=== PATIENT | male | born 1965 | race Caucasian/White ===

== ENCOUNTER 2024-05-31 14:49 | Outpatient (CLI) | payer OTHER, SELFPAY ==
--- NOTE | ~2024-05-31 | XR_ITS ---
XR lumbar spine 2-3V DATE: 05/31/2024 15:00 INDICATION: Low back pain TECHNIQUE: AP, lateral, coned lateral lumbosacral views COMPARISON: None FINDINGS: There is grade 1 anterolisthesis at L4-5. Primary lumbar spinal stenosis is not excluded. Mild degenerative disc disease at L2-3 and L4-5, mild to moderate degenerative disc disease at L3-4. No fracture or bone destruction is evident. The included lower thoracic and lumbar pedicles are intac t. The sacroiliac joints are unremarkable. IMPRESSION: Grade 1 anterolisthesis at L4-5 Mild to moderate multilevel degenerative disc disease Reviewed, dictated and finalized at location A.
== END 2024-05-31 14:50 | disposition home or self-care (01) ==
LOC: MICIMG 14:50
PROVIDERS: PCP Family Medicine; Visit Provider Student in an Organized Health Care Education/Training Program
DX: M51.369 Other intervertebral disc degeneration, lumbar region without mention of lumbar back pain or lower extremity pain (principal)
CPT/HCPCS: 72100

== ENCOUNTER 2024-06-11 01:10 | Emergency (ER) | payer OTHER, SELFPAY ==
[2024-06-11 01:12] VITALS: BP 155/96; PULSE 65; RESP 18; TEMP 36.4; O2SAT 97
--- NOTE | 2024-06-11 02:15 | ED_ITS ---
HPI - Skin/Abscess/Foreign Bdy General Chief complaint: Skin/Abscess/Foreign Body Stated complaint: Hemmrrhoid Time Seen by Provider: 06/11/24 02:12 Source: patient and family () Mode of arrival: ambulatory Limitations: no limitations History of Present Illness HPI narrative: Patient presents with concern for a hemorrhoid. He recently started prednisone for a back issue and noted that he started to have constipation with firm balls of stool. He has a history of hemorrhoids including a bleeding hemorrhoid approximately 10 years ago. Patient noticed what felt like a hemorrhoid his anus yesterday and he has been trying to get it back in place yesterday and today. His last void was earlier today. He feels like he needs to but states he can not. He denies any fever but he does note that he was diaphoretic presume this was due to pain. He rates his pain 9 out 10 in severity. He is not on opiates for any reason. His last bowel movement was yesterday and was then diarrheal/liquid. He is not on anticoagulation. His last oral intake was 12 noon. Patient and his had been traveling recently. Related Data Allergies Allergy/AdvReac Type Severity Reaction Status Date / Time Penicillins Allergy Intermediate Swelling Verified 05/31/24 10:05 [facility] Past Medical History Medical History Diverticulosis Internal hemorrhoid Surgical History Surgical History History of colonoscopy 2019; Dr. Lomas Family History Family History Father Hypertension Grandparent Family history of kidney disease Social History Social History (Updated 06/11/24 @ 04:07 by Lila Marks MD) Smoking status: Never smoker Second hand tobacco smoke exposure: No Alcohol intake: current Substance use type: marijuana Lack of Transportation: No Lack of Food: Never True Current Housing: I Have Housing Concerned About Future Housing: No Difficulty Paying Gas/Electric Bills: No Difficulty Paying for Meds: No Currently Unemployed: No Living arrangements: with family Additional living arrangements comments: Occupation/Education: occupation Spiritual care concerns: No Agree to blood products: Yes Exam Narrative: GENERAL: Well-appearing, well-nourished, and in no acute distress. HEAD: Normocephalic, atraumatic. EYES: Non injected, non icteric ENT: Nares clear, no rhinorrhea or epistaxis. Gross auditory acuity intact NECK: Supple. No meningismus CHEST: Speaking in full sentences. No respiratory distress. HEART: Regular rate and rhythm. . ABDOMEN: Soft, nondistended. Rectal exam: Dilated hemorrhoid along right lateral aspect. Protrusion of the rectum along left lateral aspect, approximately 1 cm from the anal verge. EXTREMITIES: Normal range of motion. No lower extremity edema. SKIN: Warm, dry, no rash. NEURO: No focal deficits. Alert and oriented x3. PSYCH: Normal mood and affect. Course Vital Signs Vital signs: Vital Signs Temperature 97.6 F 06/11/24 01:12 Pulse Rate 65 06/11/24 01:12 Respiratory Rate 18 06/11/24 01:12 Blood Pressure 155/96 H 06/11/24 01:12 Pulse Oximetry 97 06/11/24 01:12 Oxygen Delivery Room Air 06/11/24 01:12 Temperature 97.5 F L 06/11/24 03:49 Pulse Rate 54 L 06/11/24 03:49 Respiratory Rate 15 06/11/24 03:49 Blood Pressure 137/81 06/11/24 03:49 Pulse Oximetry 95 06/11/24 03:49 Oxygen Delivery Room Air 06/11/24 01:12 Procedures Nerve Block Nerve Block 1: Nerve block date: 06/11/24 Nerve block time: 03:05 Time out performed: No Local Anesthetic: lidocaine 1% Amount of anesthesia used (mL): 20 Nerve Blocks: other (perianal) Procedure Successful: Yes Patient Tolerated Procedure: well Complications: none Other Procedure Procedure 1: Other Procedure: Rectal Prolapse Reduction Procedure Note After granulated sugar had been applied to prolapsed rectum and perianal nerve block performed (see separate procedure note), thumbs were placed over luminal surfaces medially and fingers grasped the outer faith laterally. Continuous pressure was applied first with thumbs followed by internal rolling of fingers. Successful reduction. Patient tolerated procedure well, with some pain and discomfort but generally with adequate anesthesia. MDM - Skin/Abscess/Foreign Bdy MDM Narrative Medical decision making narrative: Patient presents with concern for hemorrhoid outside of his body. In the emergency department he is afebrile vital signs notable for hypertension. Patient has evidence of a dilated hemorrhoid but also partial prolapse rectum. Patient given Dilaudid as analgesia. Sugar applied to area to reduce edema. Nerve block performed as above. Reduction procedure performed as above. Post successful rectal prolapse reduction digital rectal exam (ALONZO) was performed and notable for internal hemorrhoid but no other palpable mass. Patient advised on preventing or managing constipation. He is prescribed a bowel regimen and encouraged to increase fiber and water intake. Given 1st dose of MiraLax and Metamucil in the emergency department. Advised to follow-up with sheltered workshop worker for follow-up colonoscopy, either his previous sheltered workshop worker or the GI doctor precision mechanical instrument maker. Discharged home in stable condition. Observed ambulating. Differential Diagnosis Differential diagnosis: Likely other (Internal hemorrhoid, external hemorrhoid, considered thrombosed hemorrhoids, considered anorectal fissures/infections; prolapsed rectum) Medical Records Attestation: I reviewed the patient's medical records. Medical records narrative: Reviewed colonoscopy from 2019 which was notable for internal nonbleeding hemorrhoids as well as diverticulosis. Discharge Plan Discharge Clinical Impression: Incomplete rectal prolapse, Constipation, Internal hemorrhage Patient Disposition: Home, Self-Care Condition: Stable Instructions: Antibiotic Form, Constipation (DC), Hemorrhoids (ED), High Fiber Diet (ED) Additional Instructions: You can see the sheltered workshop worker listed below for a follow up colonoscopy. If abnormal, you may require a referral to a colorectal surgeon for consideration of repair. Prevent constipation by drinking plenty of water, eating a high-fiber diet, supplementing psyllium/fiber which can be augmented with MiraLax. Acetaminophen/Tylenol (maximum 4000 mg per day) is safe to take with NSAIDs (ibuprofen/Motrin) for pain relief. Return to the emergency department with any new or worsening symptoms. Prescriptions: New polyethylene glycol 3350 [Miralax] 17 gram/dose powder 17 g PO DAILY Qty: 119 0RF psyllium husk [Metamucil] 0.4 gram capsule 0.4 g PO DAILY Qty: 20 0RF ibuprofen 600 mg tablet 600 mg PO TID PRN (Reason: pain) Qty: 20 0RF acetaminophen 500 mg capsule 1,000 mg PO Q6H PRN (Reason: pain) Qty: 20 0RF No Action rosuvastatin 5 mg tablet 5 mg PO DAILY Qty: 30 3RF prednisone 10 mg tablet 10 mg PO DIRECTED Qty: 30 0RF Rx Instructions: Take 5 tabs daily PO for 2 days, 4 tabs daily PO for 2 days, 3 tabs daily PO for 2 days, 2 tabs daily PO for 2 days, 1 tab daily PO for 2 days. Follow-up/Referrals: Yajaira Barrera MD [Primary Care Provider] - Constantino Lomas MD [Physician] - (previous sheltered workshop worker) Suman Caldera MD [Physician] - (Gastroenterology) Stand Alone Forms: Work/School Release IP Time of Disposition: 03:55
[2024-06-11 02:25] VITALS: BP 163/97; PULSE 65; RESP 15; TEMP 37; O2SAT 96
[2024-06-11] MEDS: HYDROmorphone HCL INJ (*CRX) 1 MG/ML SYR IV PUSH (02:43)
[2024-06-11 03:49] VITALS: BP 137/81; PULSE 54; RESP 15; TEMP 36.4; O2SAT 95
[2024-06-11] MEDS: polyethylene glycoL 3350 17 GM POWD.PACK PO (04:07)
[2024-06-11] MEDS: PSYLLIUM POWDER PACKET 1 PACKET PO (04:07)
== END 2024-06-11 04:13 | disposition home or self-care (01) ==
PROVIDERS: Emergency Provider Student in an Organized Health Care Education/Training Program; PCP Family Medicine
DX: K62.3 Rectal prolapse (principal); K59.00 Constipation, unspecified; R58 Hemorrhage, not elsewhere classified; K57.90 Diverticulosis of intestine, part unspecified, without perforation or abscess without bleeding
CPT/HCPCS: 45900; 96374; 99284; A9270; J1171; J2003

== ENCOUNTER 2024-08-29 08:11 | Outpatient (CLI) | payer OTHER, SELFPAY ==
--- OUTSIDE RECORDS SUMMARY | 2024-08-29 08:18 | XMS_ITS | Encounter Summary ---
Author Organization [facility] Address [address] [place] [address] Care Team Providers Care Case Supervisor Name Role Phone Yajaira Barrera MD Primary Care Provider [phone] Encounter Details Date Type Department Care Team (Late st Contact Info) Description 04/30/2004 Inpatient Historical [facility] Yoly Nixon, Júnior Griffiths MD [address] [place] [address] Srinivasan Sanchez, DMD [address] [place] [address] TMJ DISORD OTHER SPECIFIED (Primary Dx) Social History Tobacco Use Types Packs/Day Years Used Date Smoking Tobacco: Never Assessed Sex and Gender Information Value Date Recorded Sex Assigned at Not on file 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
--- OUTSIDE RECORDS SUMMARY | 2024-08-29 08:18 | XMS_ITS | Encounter Summary ---
Author Organization [facility] Address 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
--- OUTSIDE RECORDS SUMMARY | 2024-08-29 08:18 | XMS_ITS | Referral Summary ---
Author Organization [facility] Address [address] [place] [address] Care Team Providers Care Chef De Partie Name Role Phone Yajaira Barrera MD Primary Care Provider [phone] Source Comments [facility],non-owned Affiliates and Associated Physician Practices is amultiple site organization consisting of ambulatory clinics and hospital sitesin [place], [place], [place] and [place]. This disclosure is being madepursuant to the Care Everywhere program and may not contain all information available regarding this patient. Last updated 18.[facility] Encounters Date Type Department Care Team Description 08/22/2024 5:41 PM CORRECTIONS UNIT SUPERVISOR - 08/22/2024 8:12 PM CORRECTIONS UNIT SUPERVISOR Emergency ER at [facility] [address] [place] [address] Laceration of right little finger w/o foreign body w/o damage to nail, initial encounter Discharge Disposition: Home or Self Care 08/21/2024 Travel 08/21/2024 1:30 PM CORRECTIONS UNIT SUPERVISOR Office Visit [facility] - Colorectal Surgery [address], [facility] [address] [place] [address] Tyson Aguirre MD Surgery follow-up (Primary Dx) 07/29/2024 Travel 07/29/2024 12:17 PM CORRECTIONS UNIT SUPERVISOR Anesthesia Event [facility] [address] [place] [address] Nakul Robbins MD [place]der[place], Kimberly A, POT OPERATOR-PUTTY WORKER 07/29/2024 11:21 AM CORRECTIONS UNIT SUPERVISOR - 07/29/2024 12:29 PM CORRECTIONS UNIT SUPERVISOR Surgery [facility] [address] [place] [address] Tyson Aguirre MD HEMORRHOIDECTOMY 07/29/2024 9:49 AM CORRECTIONS UNIT SUPERVISOR - 07/29/2024 2:45 PM CORRECTIONS UNIT SUPERVISOR Hospital Encounter [facility] [address] [place] [address] Tyson Aguirre MD Surgery General Discharge Disposition: Home or Self Care 07/10/2024 Travel 07/10/2024 9:15 AM CORRECTIONS UNIT SUPERVISOR Office Visit [facility] - Colorectal Surgery [address] [facility], [facility] [address] [place] [address] Tyson Aguirre MD Grade IV hemorrhoids (Primary Dx) 06/18/2024 1:00 PM CORRECTIONS UNIT SUPERVISOR Office Visit [facility] - GI [address] [facility] [address] [place] [address] Rui Karimi, POT OPERATOR-TECHNICAL SOLUTIONS CONSULTANT Rectal prolapse (Primary Dx); Rectal pain; Weight loss, abnormal from Last 3 Months Allergies Active Allergy Reactions Criticality Noted Date Comments Penicillins Swelling 09/29/2018 Medications * Be aware that medications may not be up to date on this document. Alwaysverify current medications with the patient. Medication Sig Dispensed Refills Start Date End Date Status oxyCODONE, immediate release, (Roxicodone) 5 MG tabletIndications: Grade III hemorrhoids Take 1 (one) tablet by mouth every 6 hours as needed for Pain 12 tablet 07/29/2024 08/21/2024 Discontinued (List Clean-Up) Active Problems Problem Noted Date Diagnosed Date Rectal prolapse 06/09/2024 Overview (06/25/2024): Went to emergency room on Jun 11 to have them push back in Immunizations Name Administration Dates Next Due TDAP (7yrs+) 08/22/2024 Social History Tobacco Use Types Packs/Day Years Used Date Smoking Tobacco: Former Smokeless Tobacco: Never Tobacco Cessation:Counseling Given: No Alcohol Use Standard Drinks/Week Comments Yes 0 (1 standard drink = 0.6 oz pur e alcohol) occ Sex and Gender Information Value Date Recorded Sex Assigned at Not on file Gender Identity Not on file Sexual Orientation Not on file Last Filed Vital Signs Vital Sign Reading Time Taken Comments Blood Pressure 165/106 08/22/2024 5:21 PM CORRECTIONS UNIT SUPERVISOR Pulse 54 08/22/2024 5:21 PM CORRECTIONS UNIT SUPERVISOR Temperature 36.4 ??C (97.6 ??F) 08/22/2024 5:21 PM CS T Respiratory Rate 20 08/22/2024 5:21 PM CORRECTIONS UNIT SUPERVISOR Oxygen Saturation 97% 08/22/2024 5:21 PM CORRECTIONS UNIT SUPERVISOR Inhaled Oxygen Concentration - - Weight 105.2 kg (232 lb) 08/21/2024 1:20 PM CORRECTIONS UNIT SUPERVISOR Height 180.3 cm (5' 11 ) 08/21/2024 1:20 PM CORRECTIONS UNIT SUPERVISOR Body Mass Index 32.36 08/21/2024 1:20 PM CORRECTIONS UNIT SUPERVISOR Plan of Treatment Not on file Procedures Procedure Name Priority Date/Time Associated Diagnosis Comments ED LACERATION REPAIR Routine 08/22/2024 7:47 PM CORRECTIONS UNIT SUPERVISOR Laceration of right little finger w/o foreign body w/o damage to nail, initial encounter XR FINGERS RIGHT 2VW OR MORE STAT 08/22/2024 5:46 PM CORRECTIONS UNIT SUPERVISOR Laceration of right little finger w/o foreign body w/o damage to nail, initial encounter CARDIAC RHYTHM STRIP ORDER 08/01/2024 5:54 PM CORRECTIONS UNIT SUPERVISOR PATHOLOGY TISSUE EXAM (STL) Routine 07/29/2024 12:57 PM CORRECTIONS UNIT SUPERVISOR Diagnosis unknown TX REMOVE IN/EX HEM GROUPS = 2 07/29/2024 11:51 AM CORRECTIONS UNIT SUPERVISOR Diagnosis unknown from Last 3 Months Results * Laceration Repair (08/22/2024 7:47 PM CORRECTIONS UNIT SUPERVISOR) Narrative Cheng Machado MD - 08/22/2024 7:47 PM CORRECTIONS UNIT SUPERVISOR Linda Clark APRN-CNP ? 08/22/2024 11:14 PM Laceration Repair Date/Time: 08/22/2024 7:47 PM Performed by: Linda Clark APRN-CNP Authorized by: Linda Clark APRN-CNP ?? Consent: ??Consent obtained: ??Verbal ??Consent given by: ??Patient ??Risks, benefits, and alternatives were discussed: yes ?Risks discussed: ??Infection, poor cosmetic result, pain, poor wound healing, nerve damage, need for additional repair, tendon damage, vascular damage and retained foreign body ??Alternatives discussed: ??No treatment [place] protocol: ??Immediately prior to procedure, a time out was called: yes ?Patient identity confirmed: ??Verbally with patient Anesthesia: ??Anesthesia method: ??Local infiltration ??Local anesthetic: ??Lidocaine 1% w/o epi Laceration details: ??Location: ??Finger ??Finger location: ??R small finger ??Length (cm): ??3 ??Depth (mm): ??2 Pre-procedure details: ??Preparation: ??Imaging obtained to evaluate for foreign bodies Exploration: ??Limited defect created (wound extended): no ?Hemostasis achieved with: ??Direct pressure ??Imaging obtained: x-ray ?Imaging outcome: foreign body not noted ?Wound exploration: wound explored through full range of motion and entire depth of wound visualized ?Wound extent: no areolar tissue violation noted, no fascia violation noted, no foreign bodies/material noted, no muscle damage noted, no nerve damage noted, no tendon damage noted, no underlying fracture noted and no vascular damage noted ?Contaminated: no ?? Treatment: ??Area cleansed with: ??Saline ??Amount of cleaning: ??Extensive ??Irrigation solution: ??Sterile saline ??Irrigation volume: ??500 ??Irrigation method: ??Pressure wash ??Visualized foreign bodies/material removed: no ?Debridement: ??None ??Undermining: ??None ??Scar revision: no ?? Skin repair: ??Repair method: ??Sutures ??Suture size: ??6-0 ??Wound skin closure material used: ethilon. ??Suture technique: ??Simple interrupted ??Number of sutures: ??6 Approximation: ??Approximation: ??Close Repair type: ??Repair type: ??Simple Post-procedure details: ??Dressing: ??Non-adherent dressing ??Procedure completion: ??Tolerated well, no immediate complications Linda Clark POT OPERATOR-TECHNICAL SOLUTIONS CONSULTANT PROCEDURE/MIN OR SURGICAL ORDERABLES * XR Fingers Right 2Vw or More (08/22/2024 5:46 PM CORRECTIONS UNIT SUPERVISOR) Anatomical Region Laterality Modality Upper Extremity, Wrist / Hand Ra diographic Imaging 08/22/2024 6:05 PM CORRECTIONS UNIT SUPERVISOR Narrative 08/22/2024 6:05 PM CORRECTIONS UNIT SUPERVISOR PROCEDURE: ??XR FINGERS RIGHT 2VW OR MORE DATE/TIME OF EXAM: ??08/22/2024 5:46 PM CLINICAL INFORMATION: None relevant/not provided if blank. Indication: S61.216A: Laceration without foreign body of right little finger without damage to nail, initial encounter Additional History: COMPARISON: None. FINDINGS: No fracture, dislocation, focal bone production or destruction is identified. > Interpreting Provider: Chelsy Rodriguez MD on 08/22/2024 6:05 PM Procedure Note Chelsy Rodriguez MD - 08/22/2024 PROCEDURE: XR FINGERS RIGHT 2VW OR MORE DATE/TIME OF EXAM: 08/22/2024 5:46 PM CLINICAL INFORMATION: None relevant/not provided if blank. Indication: S61.216A: Laceration without foreign body of right little finger without damage to nail, initial encounter Additional History: COMPARISON: None. FINDINGS: No fracture, dislocation, focal bone production or destruction is identified. > Interpreting Provider: Chelsy Rodriguez MD on 08/22/2024 6:05 PM Linda Clark POT OPERATOR-TECHNICAL SOLUTIONS CONSULTANT DIAGNOSTIC IM AGING ORDERABLES * CARDIAC RHYTHM STRIP ORDER (08/01/2024 5:54 PM CORRECTIONS UNIT SUPERVISOR) Narrative 08/01/2024 5:54 PM CORRECTIONS UNIT SUPERVISOR Ordered by an unspecified provider. Scanned Document CARDIAC SERVICES ORD ERABLES * PATHOLOGY TISSUE EXAM (STL) (07/29/2024 12:57 PM CORRECTIONS UNIT SUPERVISOR) Case Report Surgical Pathology Report ? Case: [id number] ? Authorizing Provider: ??Tyson Aguirre MD ?? Collected: ? 07/29/2024 12:57 PM ? Ordering Location: ? [facility] ? Received: ?07/29/2024 01:26 PM ? Pathologist: ? Rui Vo, ? MD ? Specimens: ?? A) - Hemorrhoids, lateral left ? B) - Hemorrhoids, lateral right ? 07/30/2024 10:[address] [facility] Final Diagnosis Hemorrhoids, left lateral, hemorrhoidectomy (A): - Hemorrhoids Hemorrhoids, right lateral, hemorrhoidectomy (B): - Hemorrhoids - Submucosal adipose 07/30/2024 10:[address] [facility] Clinical History Symptomatic prolapsing internal hemorrhoids 07/30/2024 10:[address] [facility] Gross Description The requisition and specimens are identified with the patient's name (Victor Manuel Reddy). A. Received in formalin, specimen A, hemorrhoids lateral left is an unoriented portion of pink-zamarripa mucosa (3.5 x 1.3 x 1 cm). The mucosal surface is pink-zamarripa and wrinkled and the deep margin is pink-red, roughened and cauterized. Sectioning shows a zamarripa-white, gelatinous and hemorrhagic cut surface with vasculature. Nurse Recruiter sections are submitted as cassette A1. B. Received in formalin, specimen B, hemorrhoids lateral right is an unoriented portion of pink-zamarripa mucosa (1.3 x 1.2 x 0.6 cm). The mucosal surface is pink-zamarripa and wrinkled and the deep margin is zamarripa-white to red-brown and cauterized. The cut surface is red, gelatinous and hemorrhagic with vasculature. The specimen is entirely submitted as cassette B1. /AL 07/30/2024 10:[address] [facility] Microscopic Description Microscopic examination substantiates the diagnosis above. 07/30/2024 10:[address] [facility] Pathologist Location at [facility] 07/30/2024 10:[address] [facility] Disclaimer All histochemical and/or immunohistochemical results are interpreted with controls that demonstrate appropriate staining reactions before reporting results. Note on use of immunocytochemistry reagents: This test was developed and its performance characteristic determined by [facility], Department of Laboratory Medicine. It has not been cleared or approved by the U.S. Food and Drug Administration (FDA). The FDA has determined that such clearance or approval is not necessary. The test is used for clinical purpose. It should not be regarded as investigational or for research. This laboratory is certified to perform high complexity testing. The performance characteristics of the IHC/RADAMES assays have been validated on formalin-fixed paraffin embedded tissues only. The assays have not been validated on decalcified tissues. Results should be interpreted with caution. 07/30/2024 10:[address] [facility] Embedded Images 07/30/2024 10:[address] [facility] Pathology/Cytology HEMORRHOID TISSUE SPECIMEN / Unknown 07/29/2024 12:57 PM CORRECTIONS UNIT SUPERVISOR 07/29/2024 1:26 PM CORRECTIONS UNIT SUPERVISOR Comment:Pre-op diagnosis: Diagnosis unknown [R69] Miscellaneous samples (specimen) HEMORRHOID TISSUE SPECIMEN / Unknown 07/29/2024 12:57 PM CORRECTIONS UNIT SUPERVISOR 07/29/2024 1:26 PM CORRECTIONS UNIT SUPERVISOR Comment:Pre-op diagnosis: Diagnosis unknown [R69] Tyson Aguirre MD LAB - PATHOLOGY/C YTOLOGY ORDERABLES Performing Organization Address City/State/[facility] Co de Phone Number [facility] [address] [place] [address] from Last 3 Months Care Teams Chef De Partie Relationship Specialty Start Date End Date Yajaira Barrera MD [address] [place] [address] PCP - General Family Medicine 06/13/24
--- OUTSIDE RECORDS SUMMARY | 2024-08-29 08:18 | XMS_ITS | Clinical Summary ---
Author Organization [facility] Address [address] [place] [address] Care Team Providers Care Pediatric Rn Name Role Phone Yajaira Barrera MD Primary Care Provider [phone] Source Comments [facility],non-owned Affiliates and Associated Physician Practices is amultiple site organization consisting of ambulatory clinics and hospital sitesin [place], [place], [place] and [place]. This disclosure is being madepursuant to the Care Everywhere program and may not contain all information available regarding this patient. Last updated 18.[facility] Allergies Active Allergy Reactions Criticality Noted Date [...] 11 to have them push back in Encounters Date Type Department Care Team Description 08/22/2024 5:41 PM MELTER SUPERVISOR OPEN HEARTH FURNACE - 08/22/2024 8:12 PM MELTER SUPERVISOR OPEN HEARTH FURNACE Emergency ER at [facility] [address] [address] Laceration of right little finger w/o foreign body w/o damage to nail, initial encounter Discharge Disposition: Home or Self Care 08/21/2024 1:30 PM MELTER SUPERVISOR OPEN HEARTH FURNACE Office Visit [facility] - Colorectal Surgery [address], [facility] [address] [place] [phone] Tyson Aguirre MD Surgery follow-up (Primary Dx) 08/21/2024 Travel 07/29/2024 12:17 PM MELTER SUPERVISOR OPEN HEARTH FURNACE Anesthesia Event [facility] [address] [place] [address] Nakul Robbins MD Powderly, Kimberly A, APRN-ROUTE SPECIALIST 07/29/2024 11:21 AM MELTER SUPERVISOR OPEN HEARTH FURNACE - 07/29/2024 12:29 PM MELTER SUPERVISOR OPEN HEARTH FURNACE Surgery [facility] [address] [place] [address] Tyson Aguirre MD HEMORRHOIDECTOMY 07/29/2024 9:49 AM MELTER SUPERVISOR OPEN HEARTH FURNACE - 07/29/2024 2:45 PM MELTER SUPERVISOR OPEN HEARTH FURNACE Hospital Encounter [facility] [address] [place] [id number] Tyson Aguirre MD Surgery General Discharge Disposition: Home or Self Care 07/29/2024 Travel 07/10/2024 9:15 AM MELTER SUPERVISOR OPEN HEARTH FURNACE Office [facility] [address] [id number] Tyson Aguirre MD Grade IV hemorrhoids (Primary Dx) 07/10/2024 Travel 06/18/2024 1:00 PM MELTER SUPERVISOR OPEN HEARTH FURNACE Office Visit [facility] - GI [address] [facility] [address] [place] [address] Rui Karimi, MANAGEMENT COORDINATOR-CONSTRUCTION CARPENTERS HELPER Rectal prolapse (Primary Dx); Rectal pain; Weight loss, abnormal from Last 3 Months Immunizations Name Administration Dates Next Due TDAP (7yrs+) 08/22/2024 Family History Medical History Relation Name Comments Cancer - Prostate Father Relation Name Status Comments Father Social History Tobacco Use Types Packs/Day Years [...] Comments Blood Pressure 165/106 08/22/2024 5:21 PM MELTER SUPERVISOR OPEN HEARTH FURNACE Pulse 54 08/22/2024 5:21 PM MELTER SUPERVISOR OPEN HEARTH FURNACE Temperature 36.4 ??C (97.6 ??F) 08/22/2024 5:21 PM CS T Respiratory Rate 20 08/22/2024 5:21 PM MELTER SUPERVISOR OPEN HEARTH FURNACE Oxygen Saturation 97% 08/22/2024 5:21 PM MELTER SUPERVISOR OPEN HEARTH FURNACE Inhaled Oxygen Concentration - - Weight 105.2 kg (232 lb) 08/21/2024 1:20 PM MELTER SUPERVISOR OPEN HEARTH FURNACE Height 180.3 cm (5' 11 ) 08/21/2024 1:20 PM MELTER SUPERVISOR OPEN HEARTH FURNACE Body Mass Index 32.36 08/21/2024 1:20 PM MELTER SUPERVISOR OPEN HEARTH FURNACE Plan of Treatment Health Maintenance Due Date Last Done Comments COLOGUARD (AGES 45-75) - COL ON CA SCREENING 1966 COLON MONITORING 1966 COLONOSCOPY - COLON CA SCREENING 1966 CT COLONOGRAPHY - COLON CA SCREENING 1966 Colorectal Cancer Screening 1966 FIT - COLON CA SCREENING 1966 FLEX SIG - COLON CA SCREENING 1966 LIPID TESTING 1966 HIV SCREENING 1981 HEPATITIS C SCREENING 03/22/1984 HEPATITIS B VACCINE (1 of 3 - 19+ 3-dose series) 1985 PNEUMOCOCCAL VACCINE 50+ (1 of 1 - PCV) 2016 ZOSTER VACCINE (1 of 2) 2016 COVID-19 VACCINE ( - 2023-2 5 season) 2024 12/05/2020, 11/14/2020 INFLUENZA VACCINE (#1) 2024 SCREENING FOR DIABETES 06/18/2024 DEPRESSION SCREENING 07/31/2024 DTAP/TDAP/TD VACCINES (2 - T d or Tdap) 08/22/2034 08/22/2024 HIB VACCINE Aged Out No longer eligi ble based on patient's age to complete this topic HPV VACCINE Aged Out No longer eligi ble based on patient's age to complete this topic MENINGOCOCCAL (Group B) VACCINE Aged Out No longer eligible b ased on patient's age to complete this topic MENINGOCOCCAL VACCINE Aged Out No gabriel megan eligible based on patient's age to complete this topic Procedures Procedure Name Priority Date/Time Associated Diagnosis Comments ED LACERATION REPAIR Routine 08/22/2024 7:47 PM MELTER SUPERVISOR OPEN HEARTH FURNACE Laceration of right little finger w/o foreign body w/o damage to nail, initial encounter XR FINGERS RIGHT 2VW OR MORE STAT 08/22/2024 5:46 PM MELTER SUPERVISOR OPEN HEARTH FURNACE Laceration of right little finger w/o foreign body w/o damage to nail, initial encounter CARDIAC RHYTHM STRIP ORDER 08/01/2024 5:54 PM MELTER SUPERVISOR OPEN HEARTH FURNACE PATHOLOGY TISSUE EXAM (STL) Routine 07/29/2024 12:57 PM MELTER SUPERVISOR OPEN HEARTH FURNACE Diagnosis unknown NV REMOVE IN/EX HEM GROUPS = 2 07/29/2024 11:51 AM MELTER SUPERVISOR OPEN HEARTH FURNACE Diagnosis unknown from Last 3 Months Results * Laceration Repair (08/22/2024 7:47 PM MELTER SUPERVISOR OPEN HEARTH FURNACE) Narrative Cheng Machado MD - 08/22/2024 7:47 PM MELTER SUPERVISOR OPEN HEARTH FURNACE Linda Clark APRN-CNP ? 08/22/2024 11:14 PM [...] retained foreign body ??Alternatives discussed: ??No treatment Buford protocol: ??Immediately prior to procedure, a time [...] ??Tolerated well, no immediate complications Linda Clark APRN-CONSTRUCTION CARPENTERS HELPER PROCEDURE/MIN OR SURGICAL ORDERABLES * XR Fingers Right 2Vw or More (08/22/2024 5:46 PM MELTER SUPERVISOR OPEN HEARTH FURNACE) Anatomical Region Laterality Modality Upper Extremity, Wrist / Hand Ra diographic Imaging 08/22/2024 6:05 PM MELTER SUPERVISOR OPEN HEARTH FURNACE Narrative 08/22/2024 6:05 PM MELTER SUPERVISOR OPEN HEARTH FURNACE PROCEDURE: ??XR FINGERS RIGHT 2VW OR MORE [...] MD on 08/22/2024 6:05 PM Linda Clark MANAGEMENT COORDINATOR-CONSTRUCTION CARPENTERS HELPER DIAGNOSTIC IM AGING ORDERABLES * CARDIAC RHYTHM STRIP ORDER (08/01/2024 5:54 PM MELTER SUPERVISOR OPEN HEARTH FURNACE) Narrative 08/01/2024 5:54 PM MELTER SUPERVISOR OPEN HEARTH FURNACE Ordered by an unspecified provider. Scanned Document CARDIAC SERVICES ORD ERABLES * PATHOLOGY TISSUE EXAM (STL) (07/29/2024 12:57 PM MELTER SUPERVISOR OPEN HEARTH FURNACE) Case Report Surgical Pathology Report ? Case: [id number] ? Authorizing Provider: ??Tyson Aguirre MD ?? Collected: ? 07/29/2024 12:57 PM ? Ordering Location: ? [facility] ? Received: ?07/29/2024 01:26 PM ? Pathologist: ? Rui Vo, ? MD ? Specimens: ?? A) - Hemorrhoids, lateral left ? B) - Hemorrhoids, lateral right ? 07/30/2024 10:[address] [facility] Final Diagnosis Hemorrhoids, left lateral, hemorrhoidectomy (A): - Hemorrhoids Hemorrhoids, right lateral, hemorrhoidectomy (B): - Hemorrhoids - Submucosal adipose 07/30/2024 10:[address] [facility] Clinical History Symptomatic prolapsing internal hemorrhoids 07/30/2024 10:[address] [facility] Gross Description The requisition [...] gelatinous and hemorrhagic cut surface with vasculature. Workforce Consultant sections are submitted as cassette A1. B. [...] cassette B1. /AL 07/30/2024 10:[address] [facility] Microscopic Description Microscopic examination substantiates the diagnosis above. 07/30/2024 10:[address] [facility] Pathologist Location at [facility] 07/30/2024 10:[address] [facility] Disclaimer All histochemical and/or immunohistochemical results are interpreted with controls that demonstrate appropriate staining reactions before reporting results. Note on use of immunocytochemistry reagents: This test was developed and its performance characteristic determined by [facility], Department of Laboratory Medicine. It has [...] interpreted with caution. 07/30/2024 10:[address] [facility] Embedded Images 07/30/2024 10:[address] [facility] Pathology/Cytology HEMORRHOID TISSUE SPECIMEN / Unknown 07/29/2024 12:57 PM MELTER SUPERVISOR OPEN HEARTH FURNACE 07/29/2024 1:26 PM MELTER SUPERVISOR OPEN HEARTH FURNACE Comment:Pre-op diagnosis: Diagnosis unknown [R69] Miscellaneous samples (specimen) HEMORRHOID TISSUE SPECIMEN / Unknown 07/29/2024 12:57 PM MELTER SUPERVISOR OPEN HEARTH FURNACE 07/29/2024 1:26 PM MELTER SUPERVISOR OPEN HEARTH FURNACE Comment:Pre-op diagnosis: Diagnosis unknown [R69] Tyson Aguirre MD LAB - PATHOLOGY/C YTOLOGY ORDERABLES Performing Organization Address City/State/ZIP Co fl Phone Number [facility] [address] [place], [place] [id number] from Last 3 Months Care Teams Pediatric Rn Relationship Specialty Start Date End Date Yajaira Barrera MD [address] [place], [place] [id number] PCP - General Family Medicine 06/13/24
--- OUTSIDE RECORDS SUMMARY | 2024-08-29 08:18 | XMS_ITS | Patient Health Summary ---
Author Organization [facility] Address [address] [place] [address] Care Team Providers Care Case Reviewer Name Role Phone Yajaira Barrera MD Primary Care Provider [phone] Note from [facility],non-owned Affiliates and Associated Physician Practices is amultiple site organization consisting of ambulatory clinics and hospital sitesin [place], [place], [place] and [place]. This disclosure is being madepursuant to the Care Everywhere program and may not contain all information available regarding this patient. Last updated 18.[facility] Allergies * Penicillins(Swelling) Medications * Be aware that medications may not be up to date on this document. Alwaysverify current medications with the patient. Ended Medications* oxyCODONE, immediate release, (Roxicodone) 5 MG tablet (Started 07/29/2024)(Discontinued) Take 1 (one) tablet by mouth every 6 hours as needed for Pain Active Problems Problem Noted Date Diagnosed Date Rectal prolapse 06/09/2024 Immunizations * TDAP (7yrs+)(Given 08/22/2024) Social History Tobacco Use Types Packs/Day Years [...] Comments Blood Pressure 165/106 08/22/2024 5:21 PM FURNITURE REMOVALIST Pulse 54 08/22/2024 5:21 PM FURNITURE REMOVALIST Temperature 36.4 ??C (97.6 ??F) 08/22/2024 5:21 PM CS T Respiratory Rate 20 08/22/2024 5:21 PM FURNITURE REMOVALIST Oxygen Saturation 97% 08/22/2024 5:21 PM FURNITURE REMOVALIST Inhaled Oxygen Concentration - - Weight 105.2 kg (232 lb) 08/21/2024 1:20 PM FURNITURE REMOVALIST Height 180.3 cm (5' 11 ) 08/21/2024 1:20 PM FURNITURE REMOVALIST Body Mass Index 32.36 08/21/2024 1:20 PM FURNITURE REMOVALIST Procedures * ED LACERATION REPAIR(Performed 08/22/2024) Performed for Laceration of right little finger w/o foreign body w/o damage to nail, initial encounter * XR FINGERS RIGHT 2VW OR MORE(Performed 08/22/2024) Performed for Laceration of right little finger w/o foreign body w/o damage to nail, initial encounter * CARDIAC RHYTHM STRIP ORDER(Performed 08/01/2024) * PATHOLOGY TISSUE EXAM (STL)(Performed 07/29/2024) Performed for Diagnosis unknown * OR REMOVE IN/EX HEM GROUPS = 2(Performed 07/29/2024) Performed for Diagnosis unknown * INFLUENZA A+B - POINT OF CARE (AMB)(Performed 09/29/2018) Performed for Acute pharyngitis, unspecified etiology * STREP A SCREEN - POINT OF CARE (AMB) STL(Performed 09/29/2018) Performed for Acute pharyngitis, unspecified etiology Results * Laceration Repair (08/22/2024 7:47 PM FURNITURE REMOVALIST) Narrative Cheng Machado MD - 08/22/2024 7:47 PM FURNITURE REMOVALIST Linda Clark APRN-CNP ? 08/22/2024 11:14 PM [...] retained foreign body ??Alternatives discussed: ??No treatment Holder protocol: ??Immediately prior to procedure, a time [...] ??Tolerated well, no immediate complications Linda Clark TRIGONOMETRY TUTOR-OPTIMIZATION ENGINEER PROCEDURE/MIN OR SURGICAL ORDERABLES * XR Fingers Right 2Vw or More (08/22/2024 5:46 PM FURNITURE REMOVALIST) Anatomical Region Laterality Modality Upper Extremity, Wrist / Hand Ra diographic Imaging 08/22/2024 6:05 PM FURNITURE REMOVALIST Narrative 08/22/2024 6:05 PM FURNITURE REMOVALIST PROCEDURE: ??XR FINGERS RIGHT 2VW OR MORE [...] MD on 08/22/2024 6:05 PM Linda Clark TRIGONOMETRY TUTOR-OPTIMIZATION ENGINEER DIAGNOSTIC IM AGING ORDERABLES * CARDIAC RHYTHM STRIP ORDER (08/01/2024 5:54 PM FURNITURE REMOVALIST) Narrative 08/01/2024 5:54 PM FURNITURE REMOVALIST Ordered by an unspecified provider. Scanned Document CARDIAC SERVICES ORD ERABLES * PATHOLOGY TISSUE EXAM (STL) (07/29/2024 12:57 PM FURNITURE REMOVALIST) Case Report Surgical Pathology Report ? Case: [id number] ? Authorizing Provider: ??Tyson Aguirre MD ?? Collected: ? 07/29/2024 12:57 PM ? Ordering Location: ? [facility] ? Received: ?07/29/2024 01:26 PM ? Pathologist: ? Rui Vo, ? MD ? Specimens: ?? A) - Hemorrhoids, lateral left ? B) - Hemorrhoids, lateral right ? 07/30/2024 10:23 AM [facility] Final Diagnosis Hemorrhoids, left lateral, hemorrhoidectomy (A): - Hemorrhoids Hemorrhoids, right lateral, hemorrhoidectomy (B): - Hemorrhoids - Submucosal adipose 07/30/2024 10:23 AM [facility] Clinical History Symptomatic prolapsing internal hemorrhoids 07/30/2024 10:23 AM [facility] Gross Description The requisition [...] gelatinous and hemorrhagic cut surface with vasculature. Steward/Stewardess Third sections are submitted as cassette A1. B. [...] as cassette B1. /AL 07/30/2024 10:23 AM [facility] Microscopic Description Microscopic examination substantiates the diagnosis above. 07/30/2024 10:23 AM [facility] Pathologist Location at [facility] 07/30/2024 10:23 AM [facility] Disclaimer All histochemical and/or immunohistochemical results are interpreted with controls that demonstrate appropriate staining reactions before reporting results. Note on use of immunocytochemistry reagents: This test was developed and its performance characteristic determined by [facility], Department of Laboratory Medicine. It has not [...] be interpreted with caution. 07/30/2024 10:23 AM [facility] Embedded Images 07/30/2024 10:23 AM [facility] Pathology/Cytology HEMORRHOID TISSUE SPECIMEN / Unknown 07/29/2024 12:57 PM FURNITURE REMOVALIST 07/29/2024 1:26 PM FURNITURE REMOVALIST Comment:Pre-op diagnosis: Diagnosis unknown [R69] Miscellaneous samples (specimen) HEMORRHOID TISSUE SPECIMEN / Unknown 07/29/2024 12:57 PM FURNITURE REMOVALIST 07/29/2024 1:26 PM FURNITURE REMOVALIST Comment:Pre-op diagnosis: Diagnosis unknown [R69] Tyson Aguirre MD LAB - PATHOLOGY/C YTOLOGY ORDERABLES [facility] [address] [place] [address] * INFLUENZA A+B - POINT OF CARE (AMB) (09/29/2018 3:23 PM FURNITURE REMOVALIST) Influenza A Antigen Rapid Negative Negative Influenza B Antigen Rapid Negative Negative Influenza Internal Control present NEGATIVE - POSITIVE Influenza Lot Number [id number] Influenza Expiration Date 05 03 2020 Other NASOPHARYNGEAL SWAB / Unknown 09/29/2018 3:23 PM FURNITURE REMOVALIST Cecily Welch TRIGONOMETRY TUTOR-OPTIMIZATION ENGINEER LAB - POINT OF CA RE ORDERABLES * STREP A SCREEN - POINT OF CARE (AMB) STL (09/29/2018 3:12 PM FURNITURE REMOVALIST) Strep A Rapid POCT Negative Negative Strep A Internal Control Present Lot # [id number] Expiration Date 04 29 2020 Throat ENTIRE THROAT (SURFACE REGION OF NECK) / Unknown 09/29/2018 3:12 PM FURNITURE REMOVALIST Cecily Welch APRN-OPTIMIZATION ENGINEER LAB - POINT OF CA RE ORDERABLES Care Teams Case Reviewer Relationship Specialty Start Date End Date Yajaira Barrera MD [address] [place] [address] PCP - General Family Medicine 06/13/24
--- OUTSIDE RECORDS SUMMARY | 2024-08-29 08:18 | XMS_ITS | Clinical Summary ---
Author Organization [facility] Address [address] Attn: Epic Prelude ADT [address] [id number] Care Team Providers Care Board Saw Runner Name Role Phone Yajaira Barrera MD Primary Care Provider [phone] Social History Tobacco Use Types Packs/Day Years Used Date Smoking Tobacco: Never Assessed Sex and Gender Information Value Date Recorded Sex Assigned at Not on file Legal Sex Male 5:19 AM CUSTOMER OPERATIONS REPRESENTATIVE Gender Identity Not on file Sexual Orientation Not on file Plan of Treatment Health Maintenance Due Date Last Done Comments DTAP/TDAP/TD VACCINES (1 - Tdap) 1985 HEPATITIS B VACCINES (1 of 3 - 19+ 3-dose series) 03/01 COLORECTAL SCREENING 2011 Colorectal Cancer Screening 2011 FIT-DNA Q 3 years 2011 FIT/FOBT Q 1 year 2011 Flex Sig/CT Colonography Q 5 years 2011 ZOSTER VACCINE (1 of 2) 2016 INFLUENZA VACCINE (#1) 2024 Care Teams Board Saw Runner Relationship Specialty Start Date End Date Yajaira Barrera MD [address] [place] [id number] PCP - General 04/30/04
== END 2024-09-02 09:52 | disposition home or self-care (01) ==
PROVIDERS: PCP Family Medicine; Visit Provider Student in an Organized Health Care Education/Training Program
DX: G47.10 Hypersomnia, unspecified (principal)
CPT/HCPCS: 95800

== ENCOUNTER 2025-05-04 15:43 | Emergency (ER) | payer OTHER, SELFPAY ==
--- NOTE | 2025-05-04 16:14 | ED.WOUNDLAC ---
HPI - Wound/Laceration General Chief Complaint: Wound/Laceration Stated Complaint: L KNEE LACERATION Time Seen by Provider: 05/04/25 16:14 Source: patient Mode of arrival: ambulatory Limitations: no limitations History of Present Illness HPI narrative: 60-year-old male presented for complaint laceration to left knee sustainted today at 1500. States a metal pipe fell on the knee. Denies any other injury. He did clean the site with water. Last tetanus within the past year. Related Data Allergies Allergy/AdvReac Type Severity Reaction Status Date / Time Penicillins Allergy Intermediate Swelling Verified 05/04/25 16:01 Review of Systems Review of Systems: CONSTITUTIONAL: Denies body aches, fever, chills, or sweats. CARDIOVASCULAR: Denies chest pain, palpitations, or edema. RESPIRATORY: Denies cough or dyspnea. SKIN: Reports laceration left knee MUSCULOSKELETAL: Denies back pain, joint pain, or myalgia. NEUROLOGIC: Denies headache, numbness, tingling, or weakness. [facility] Past Medical History Medical History Diverticulosis Internal hemorrhoid Surgical History Surgical History History of colonoscopy 2019; Dr. Lomas Family History Family History (Reviewed 05/31/24 @ 10:05 by Silvia Plascencia [facility]) Father Hypertension Grandparent Family history of kidney disease Social History Social History (Updated 06/11/24 @ 04:07 by Lila Marks MD) Smoking status: Never smoker Second hand tobacco smoke exposure: No Alcohol intake: current Substance use type: marijuana Lack of Transportation: No Lack of Food: Never True Current Housing: I Have Housing Concerned About Future Housing: No Difficulty Paying Gas/Electric Bills: No Difficulty Paying for Meds: No Currently Unemployed: No Living arrangements: with family Additional living arrangements comments: Occupation/Education: occupation Spiritual care concerns: No Agree to blood products: Yes Comments At time of signature, I have reviewed and agree with nursing past medical, surgical, social and family history unless otherwise noted. Please see nursing chart for further information. There is no relevant family history pertinent to the presenting complaint Exam Narrative: GENERAL: Well-appearing ENT: Mucous membranes moist. Oropharynx without edema, erythema or lesions. CHEST: Clear to auscultation. HEART: Regular rate and rhythm. SKIN: Left medial knee with 2.5cm irregular laceration, Bleeding controlled. NEURO: Alert and oriented x3. Course Course Emergency Course: Patient is aware of diagnosis, understands and agrees to treatment plan. Anticipatory guidance given. Patient agrees to follow-up as directed and is aware of reasons to seek care at the emergency department. Portions of this record may have been created with voice recognition software Level of Care: Express Care Visit Vital Signs Vital signs: Reviewed Procedures Laceration Left knee: Size (cm): 2.5 Description: irregular and clean Depth: simple, single layer Local Anesthetic: lidocaine 1% Amount of anesthesia used (mL): 6 Pre-repair: wound explored and irrigated ====== Skin Level ====== Skin layer closed with: nylon Size (cm): 4-0 Number of sutures: 6 Technique: simple, interrupted ====== Subcutaneous Layer ====== ====== Muscle Layer ====== ====== Tendon Layer ====== Dressing: The procedure and its alternatives were reviewed with patient. Risks were reviewed with patient including infection and damage to nearby structures. Patient provided verbal informed consent. The patient was positioned appropriately. Sterile drapes applied to maintain sterile field. Wound was explored for abnormalities including infection and foreign bodies. Sutures placed with wound edges approximated. Patient tolerated well, no complications. Dressing applied per RN. MDM - Wound/Laceration MDM Narrative Medical decision making narrative: Discussed physical exam findings; left medial knee laceration. tolerated suture placement. Advised supportive measures and signs/symptoms to go to the ER. Pt is appropriate for outpt treatment and f/u. Differential Diagnosis Differential diagnosis: Likely laceration, abrasion and avulsion of skin Discharge Plan Discharge Clinical Impression: Laceration Patient Disposition: Home Condition: Stable Instructions: Antibiotic Form, Care For Your Stitches (ED), Laceration (ED) Additional Instructions: Your sutures need to be removed in 7-10 days. You can return to the clinic or follow up with your pcp. Wear the dressing that has been applied for the first 24 hours to allow a scab to start forming. After this, you may remove and wash as normal with soap and water. Do NOT wash with peroxide or alcohol. No running or jumping, use caution with bending as the sutures are on a joint Take tylenol or ibuprofen at home for pain Follow up with your PCP Go to the ER with any signs of infection such as redness, swelling, increased pain, or drainage. Patient Language: German Prescriptions: New cephalexin 500 mg capsule 500 mg PO Q8H 5 Days Qty: 15 0RF No Action prednisone 10 mg tablet 10 mg PO DIRECTED Qty: 30 0RF Rx Instructions: Take 5 tabs daily PO for 2 days, 4 tabs daily PO for 2 days, 3 tabs daily PO for 2 days, 2 tabs daily PO for 2 days, 1 tab daily PO for 2 days. polyethylene glycol 3350 [Miralax] 17 gram/dose powder 17 g PO DAILY Qty: 119 0RF ibuprofen 600 mg tablet 600 mg PO TID PRN (Reason: pain) Qty: 20 0RF acetaminophen 500 mg capsule 1,000 mg PO Q6H PRN (Reason: pain) Qty: 20 0RF Follow-up/Referrals: Chayito Martinez PA-C [Primary Care Provider, Family Practice] Time of Disposition: 17:09
[2025-05-04] MEDS: LIDOCAINE 1% LOCAL INJ 2 ML AMPUL 8 ML INFILTRATE (16:28)
== END 2025-05-04 17:15 | disposition home or self-care (01) ==
PROVIDERS: Emergency Provider Nurse Practitioner Family; PCP Student in an Organized Health Care Education/Training Program
DX: S81.012A Laceration without foreign body, left knee, initial encounter (principal); W20.8XXA Other cause of strike by thrown, projected or falling object, initial encounter; F12.90 Cannabis use, unspecified, uncomplicated
CPT/HCPCS: 12001; 99213; G0463; J2003